=== PATIENT | female | born 1960 | race American Indian/Alaskan Native ===

== ENCOUNTER 2020-06-05 07:11 | Outpatient (CLI) | payer BC ==
--- NOTE | 2020-06-05 09:11 | Mammography Report ---
DIGITAL SCREENING MAMMOGRAM WITH CAD, 06/05/2020 CLINICAL INFORMATION / INDICATION: Routine screening mammography. ROUTINE TECHNIQUE: Digital bilateral 2D mammography was obtained in the craniocaudal and mediolateral obliqu e projections. This examination was interpreted with the benefit of Computer-Aided Detection analysis . COMPARISON: None FINDINGS: Breast Density: There are scattered areas of fibroglandular density. No dominant mass, suspicious calcifications, or architectural distortion in either breast. There is a 7 mm nodular density along the lower inner right breast located approximately 5 cm from th e nipple, anterior/middle depth, and near the 4-5:00 position. IMPRESSION: Left breast nodular density as above. Recommend follow-up compression imaging with possib le ultrasound to follow. Follow up recommendation: Special View: Spot with possible ultrasound to follow BI-RADS Category 0: Incomplete. Needs additional imaging evaluation and/or prior mammograms for aurelia groveron. A "normal" or negative report should not discourage follow up or biopsy of a clinically significant f inding. A written summary of these findings will be mailed to the patient. The patient will be entered into a mammography reporting system which will generate a reminder letter for the patient's next appointmen t at the appropriate interval. The [employer] recommends yearly mammograms starting at age 40 and continuing as l kp as a woman is in good health. Breast MRI is recommended for women with an approximate 20-25% or greater lifetime risk of breast cancer, including women with a strong family history of breast or ova thuy cancer or who have been treated for Hodgkin's disease. Signer Name: Sushil White MD Signed: 06/05/2020 9:06 AM Workstation Name: [id number]
== END 2020-06-05 07:12 | disposition home or self-care (01) ==
LOC: MAMMO 07:11
PROVIDERS: ATTEND Internal Medicine
DX: Z12.31 Encounter for screening mammogram for malignant neoplasm of breast (principal)
CPT/HCPCS: 77067